=== PATIENT | female | born 1975 | race Caucasian/White ===

== ENCOUNTER 2016-06-29 05:50 | Day surgery (SDC) | payer OTHER ==
[~2016-06-29] VITALS: Ht 166.4 cm; Wt 89.2 kg
[2016-06-29] VITALS (10 sets, daily range): BP systolic 89–129; BP diastolic 59–78; PULSE 69–110; RESP 15–26; O2SAT 92–99
[~2016-06-29 05:50] MED LIST: ACET1TAB42 PO; ALBU18HF INH; ALBU2.5V4 INHALATION; BECL8.7A6 IH; DICY10CA13 PO; DILT120T3 PO; LORA10CA PO; NPR500T PO; OMEP20TA24 PO; POLY17PO6 PO; PROC-4 PO; RANI150T11 PO; RIZA10TA28 PO; TOPI50TA88 PO
[2016-06-29] MEDS ORDERED: Dexamethasone 4 mg/mL Inj ONE (05:51)
[2016-06-29] MEDS ORDERED: Succinylcholine Chloride 20 mg/mL 5 mL Inj ONE (05:51)
[2016-06-29] MEDS ORDERED: Propofol 10,000 mCg/mL 20 mL Inj ONE (05:51)
[2016-06-29] MEDS ORDERED: Lidocaine PF 1% 30 mL Inj ONE (05:51)
[2016-06-29] MEDS ORDERED: Ketamine 10 mg/mL 20 mL Inj ONE (05:51)
[2016-06-29] MEDS ORDERED: Remifentanil 1 mg/3 mL Inj ONE (05:51)
[2016-06-29] MEDS ORDERED: Ondansetron 2 mg/mL 2 mL Inj ONE (05:51)
[2016-06-29] MEDS ORDERED: fentaNYL-PF 50 mCg/mL 2 mL Inj ONE (05:51)
[2016-06-29] MEDS: Lactated Ringer's 1,000 ML IV SCH ×2 (05:52→08:04)
[2016-06-29] MEDS ORDERED: LORA0.5T PO (07:16)
[2016-06-29] MEDS ORDERED: PROM25TA14 PO (07:16)
[2016-06-29] MEDS ORDERED: MECL-114 PO (07:17)
[2016-06-29] MEDS ORDERED: Lactated Ringer's 1,000 ML IV SCH (07:23)
[2016-06-29] MEDS ORDERED: Lactated Ringer's 500 ML IV PRN (07:23)
[2016-06-29] MEDS ORDERED: Ondansetron 2 mg/mL 2 mL Inj IVPUSH PRN (07:25)
[2016-06-29] MEDS ORDERED: Labetalol 5 mg/mL 4 mL Inj IV PRN (07:25)
[2016-06-29] MEDS ORDERED: fentaNYL-PF 50 mCg/mL 2 mL Inj IVPUSH PRN (07:25)
[2016-06-29] MEDS ORDERED: MetoCLOpramide 5 mg/mL 2 mL Inj IVPUSH PRN (07:25)
[2016-06-29] MEDS ORDERED: EPHEDrine Sulfate 50 mg/mL Inj IVPUSH PRN (07:25)
[2016-06-29] MEDS ORDERED: HYDROmorphone 1 mg/mL Inj IVPUSH PRN (07:25)
[2016-06-29] MEDS ORDERED: hydrALAZINE 20 mg/mL Inj IVPUSH PRN (07:25)
[2016-06-29] MEDS ORDERED: Dexamethasone 4 mg/mL Inj IVPUSH PRN (07:25)
[2016-06-29] MEDS ORDERED: Phenylephrine 10,000 mCg/mL Inj IVPUSH PRN (07:25)
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
[2016-06-29] MEDS ORDERED: Bupivacaine-MPF 0.5% W/EPI 30 mL Inj INFILTRATE ONE (08:04)
[2016-06-29] MEDS ORDERED: HYDROcodone-APAP 5-325 mg Tablet PO PRN (09:35)
--- NOTE | 2016-06-29 09:44 | OP ---
[address] [address] OPERATIVE REPORT PATIENT: NITHYA WILKES : 1975 MR#: [id number] ADMIT: 06/29/2016 JOB ID: [id number] DATE OF SURGERY: 06/29/2016 PREOPERATIVE DIAGNOSIS(ES): Right thyroid nodule. POSTOPERATIVE DIAGNOSIS(ES): Right thyroid nodule. PROCEDURE: Right thyroid lobectomy with recurrent laryngeal nerve monitoring. SURGEON: Wiley Simmons MD SENIOR DIRECTOR: MD Michael Mora PA-C INDICATION: A 40-year-old female, who I have been following for some time with right thyroid nodules. She has no nodules on the left. She had a previous FNA and then recently it was repeated. The cytologies plus DNA testing were suspicious, which placed it into a 50% category for thyroid malignancy. The patient reported that her grandmother had thyroid surgery which resulted in bilateral recurrent nerve injuries. 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 She was very worried about nerve injury, as was appropriate, and I told her I would schedule this with recurrent laryngeal nerve monitoring. FINDINGS: Both the superior and inferior parathyroid glands were identified and preserved. They were both small in the range of 2-3 mm in maximum diameter. The recurrent laryngeal nerve was actually easily found and preserved, and confirmed by nerve monitoring. There was no gross evidence of malignancy. There is no abnormal adenopathy observed. DESCRIPTION OF PROCEDURE: At the beginning and end of the operation, the SCOAP checklist was completed. A general endotracheal anesthetic was induced and, as stated above, she was set up for nerve monitoring. Her neck was extended, and then using ChloraPrep, prepped and draped in the usual fashion. The incision was designed and infiltrated with 0.5% bupivacaine with epinephrine. A collar incision was made and, using cautery, the platysma was divided. Subplatysmal planes were created and the strap muscles were divided in midline. The plane between the sternohyoid and the sternothyroid muscles was developed, and then the sternothyroid was mobilized off the gland. The findings were as stated above. The isthmus was divided using applications of the LigaSure. The superior pole was mobilized and individual branches were taken as they entered the thyroid gland with the LigaSure. Similarly, the inferior pole was mobilized taking individual branches, allowing medial rotation of the lobe. The carotid was retracted laterally and the middle thyroid vein was divided with the LigaSure. Further medial rotation allowed taking individual arterial venous branches as I approached the hilum. First, the inferior parathyroid and subsequently the superior parathyroid glands were identified and preserved, and the recurrent laryngeal nerve was identified. It was followed up to where it coursed superiorly away from the thyroid. In the central portion of the thyroid, the bipolar cautery was used. Franky's ligament was divided with the bipolar cautery and, after completely mobilizing the lobe and with visual observation of the recurrent nerve, it was stimulated and was intact. With the lobectomy completed, there was no evidence of bleeding. Sutures were placed in the specimen for margin orientation. A Valsalva maneuver was performed. There was no evidence of bleeding. The strap muscles were approximated midline with running 3-0 Vicryl. The platysma was closed with running 3-0 Vicryl and skin with running subcuticular 4-0 Vicryl. Dermabond was placed over the incision. The estimated blood loss was less than 10 cc. Specimen was the right thyroid lobe, as stated above. There were no apparent complications. The final sponge, needle, and instrument counts were announced as correct, and she was returned to the recovery room in stable condition. Critical assistance was provided by Dr. Young Carnes.
[2016-06-29] MEDS ORDERED: HYDROcodone-APAP 7.5-325 mg/15 mL 15 mL Solution ONE (10:01)
--- NOTE | 2016-06-29 14:59 | PCM.ANEP2 ---
Post Anesthesia Evaluation ASA/CMS Post Anesthesia VS in Patient's Normal Range?: Yes Resp Stable; Airway Patent?: Yes CV Function & Hydration Stable: Yes Mental Status Recovered?: Yes Pain control Satisfactory?: Yes N/V Control Satisfactory?: Yes Tuan Estrella MD Jun 29, 2016 14:59
--- NOTE | 2016-06-29 14:59 | PCM.ANEP1 ---
Post Anesthesia Phase 1 PACU Phase 1 Assessment Date of Service: Jun 29, 2016 Vital Signs Vital Signs Date Time Temp Pulse Resp B/P Pulse Ox O2 Delivery O2 Flow Rate FiO2 06/29/16 12:04 88 18 92/61 95 Room Air 06/29/16 10:32 79 16 102/69 94 Room Air 06/29/16 09:50 86 16 109/70 95 Room Air 06/29/16 09:45 85 26 119/74 96 Room Air 06/29/16 09:41 95 15 121/70 97 Nasal Cannula 3 06/29/16 09:35 95 17 125/76 93 Nasal Cannula 3 06/29/16 09:30 89 16 122/67 92 Nasal Cannula 3 06/29/16 09:26 101 16 121/78 95 Nasal Cannula 3 06/29/16 09:20 36.3 110 18 129/70 99 Room Air Anesthetic Administered: GA Level of Alertness: Awake, talking GARCIA's with Equal Strength: Yes Pain: No Nausea or Vomiting: No Oxygen Delivery: Room Air Lungs: Clear to Auscultation, Normal Air Movement Tuan Estrella MD Jun 29, 2016 14:59
== END 2016-06-29 23:59 | disposition home or self-care (01) ==
LOC: SAS 05:50
PROVIDERS: ATTEND Surgery
DX: C73 Malignant neoplasm of thyroid gland (principal); E04.1 Nontoxic single thyroid nodule; J45.909 Unspecified asthma, uncomplicated; G43.909 Migraine, unspecified, not intractable, without status migrainosus; K21.9 Gastro-esophageal reflux disease without esophagitis; R12 Heartburn; F41.9 Anxiety disorder, unspecified; F17.210 Nicotine dependence, cigarettes, uncomplicated; Z79.899 Other long term (current) drug therapy
CPT/HCPCS: 60220; G0453; J0330; J1100; J2250; J2405; J3010; J7120